=== PATIENT | female | born 2000 | race African-American/Black ===

== ENCOUNTER 2020-04-13 00:36 | Emergency (ER) | payer SELFPAY ==
[~2020-04-13] VITALS: Ht 170.2 cm; Wt 59.0 kg
--- NOTE | 2020-04-13 01:03 | NUR ---
ED Nurse Note: Pt c/o right-side lower back pain that radiates into hip and groin especially with movement. Pt reports this injury is 2 years old, but she has began to have a burning sensation through hip and groin. Pt reports the burning has gone on approx 5 days.
[2020-04-13 01:05] VITALS: BP 127/77
[2020-04-13 01:18] LABS: APPEARANCE,URINE CLEAR; BILIRUBIN, URINE NEGATIVE (NEGATIVE); COLOR,URINE PALE YELLOW; GLUCOSE, URINE (UA) NEGATIVE (NEGATIVE); KETONES,URINE NEGATIVE (NEGATIVE); LEUKOCYTE ESTERASE ,URINE 1+ (NEGATIVE); NITRITE,URINE NEGATIVE (NEGATIVE); PH,URINE 6 (4.5-8.0); PROTEIN,URINE NEGATIVE (NEGATIVE); UROBILINOGEN,URINE NORMAL MG/DL (0.0-1.0)
[2020-04-13] MEDS ORDERED: GABAPENTIN400 MG ORAL (02:22)
[2020-04-13 02:27] VITALS: BP 125/71
--- NOTE | 2020-04-13 02:29 | NUR ---
ER DISCHARGE NOTE: Patient is cleared to be discharged per ERMD, pt is aao x4, on room air, with stable vital signs. pt was given d/c and prescription instructions, pt was able to verbalize understanding, pt id band removed. pt is able to ambulate with steady gait. pt took all belongings.
--- NOTE | 2020-04-13 15:41 | Diagnostic Imaging Report ---
Indication: Pain Technique: One view of the pelvis, 2 views of the right hip Comparison: none Findings: No acute fracture. No dislocation. Joint spaces are preserved. Impression: Negative
--- NOTE | 2020-04-13 15:43 | Diagnostic Imaging Report ---
Indication: Back pain Technique: 4 views of the lumbar spine Comparison: None Findings: There is transitional lumbosacral anatomy, with a transitional lumbosacral segment as well as a transitional thoracolumbar segment. Bony alignment is normal. Vertebral body heights are preserved. Disc spaces are preserved. Facet and sacroiliac joint spaces are preserved. Pedicles are intact. Impression: Negative
--- NOTE | 2020-04-16 08:18 | Emergency Room Report ---
History of Present Illness General Chief Complaint: Lower Back Pain or Injury Source: Patient Present Illness HPI Patient is a 19-year-old female presents for increased low back pain. Reports having increased pain to the right hip after previous hip dislocation. States that she been having some numbness to the groin area. Denies any recent trauma. Denies any fever. No prior history of drug use. Worsened with movement. No prior history of cancer. Denies being . Allergies: Coded Allergies: No Known Allergies (Unverified , 04/13/20) COVID-19 Screening Contact w/high risk pt: No Experienced COVID-19 symptoms?: No COVID-19 Testing performed [employer]GER [employer]: Yes - a week ago COVID-19 Screening: Negative COVID-19 COVID-19 Testing Source: na Patient History Past Medical History: see triage record Last Menstrual Period: yesterday Now: No Reviewed Nursing Documentation: PMH: Agreed; PSxH: Agreed Nursing Documentation-PMH Past Medical History: No Stated History Review of Systems All Other Systems: negative except mentioned in HPI Physical Exam Vital Signs Date Time Temp Pulse Resp B/P (MAP) Pulse Ox O2 Delivery O2 Flow Rate FiO2 04/13/20 00:39 98.4 85 17 127/77 (94) 97 Room Air Sp02 EP Interpretation: reviewed, normal General Appearance: normal inspection, well appearing, no apparent distress, alert, GCS 15, non-toxic Head: atraumatic ENT: normal ENT inspection, hearing grossly normal, normal voice Neck: normal inspection, full range of motion, supple, no bony tend Respiratory: normal inspection, lungs clear, normal breath sounds, no respiratory distress, no retraction, no wheezing Cardiovascular #1: regular rate, rhythm, no edema Gastrointestinal: normal inspection, normal bowel sounds, non tender, soft, no guarding, no hernia Genitourinary: no CVA tenderness Musculoskeletal: normal inspection, back normal, normal range of motion Neurologic: alert, motor strength/tone normal, aviation boatswain's mate III-XII nml as tested, oriented x3, responsive, speech normal, normal inspection Psychiatric: normal inspection, judgement/insight normal, mood/affect normal Medical Decision Making Diagnostic Impression: Primary Impression: Hip pain, right ER Course Patient presents for low back pain and hip pain. Differential diagnosis include was not limited to peripheral neuropathy, sciatica, herniated disc among others. X-ray imaging was ordered to patient's complaint of back pain and hip pain. X- ray ridging read by radiology showed no evidence of acute pathology. Patient urinalysis showed no evidence of urinary infection. Patient was advised to follow-up with primary care physician for recheck. Patient was advised she may need MRI of symptoms worsen. This medical record is generated with [employer] loader technician software. There may be some loader technician discrepancies related to use of this software Labs Test 04/13/20 01:12 Urine Color Pale yellow Urine Appearance Clear Urine pH 6 (4.5-8.0) Urine Specific [place] 1.020 (1.005-1.035) Urine Protein Negative (NEGATIVE) Urine Glucose (UA) Negative (NEGATIVE) Urine Ketones Negative (NEGATIVE) Urine Blood Negative (NEGATIVE) Urine Nitrite Negative (NEGATIVE) Urine Bilirubin Negative (NEGATIVE) Urine Urobilinogen Normal MG/DL (0.0-1.0) Urine Leukocyte Esterase 1+ (NEGATIVE) Urine RBC 0-2 /HPF (0 - 2) Urine WBC 0-2 /HPF (0 - 2) Urine Squamous Epithelial Cells Few /LPF (NONE/OCC) Urine Bacteria None /HPF (NONE) Urine HCG, Qualitative Negative (NEGATIVE) Last Vital Signs Date Time Temp Pulse Resp B/P (MAP) Pulse Ox O2 Delivery O2 Flow Rate FiO2 04/13/20 02:27 98.0 72 14 125/71 99 Room Air Status: improved Disposition: HOME, SELF-CARE Condition: Stable Scripts Gabapentin* (GABAPENTIN*) 400 Mg Capsule 400 MG ORAL THREE TIMES A DAY, #20 CAP 0 Refills Prov: Rodríguez Banks MD 04/13/20 Referrals: NOT CHOSEN IPA/MD,REFERRING (PCP) Patient Instructions: Hip Pain Additional Instructions: Follow up with your doctor for recheck. Return if worse. Rodríguez Banks MD Apr 16, 2020 08:18
== END 2020-04-13 02:30 | disposition home or self-care (01) ==
LOC: EMR 00:48
DX: M25.551 Pain in right hip (principal)
CPT/HCPCS: 72110; 81003; 81025; 99284